=== PATIENT | female | born 1970 | race Caucasian/White ===

== ENCOUNTER → 2018-02-02 | Outpatient (REF) | payer BC | LOC: M LAB REF 10:29 | DX: Z01.419 Encounter for gynecological examination (general) (routine) without abnormal findings (principal) | CPT/HCPCS: G0123 ==

== ENCOUNTER → 2022-09-08 | Outpatient (REF) | payer BC | LOC: M LAB REF 17:38 | PROVIDERS: ATTEND Nurse Practitioner Family | DX: Z12.4 Encounter for screening for malignant neoplasm of cervix (principal) | CPT/HCPCS: 87624; G0123 ==